=== PATIENT | female | born 1930 | race Asian ===

== ENCOUNTER 2017-03-22 21:05 | Emergency (ER) | payer OTHER ==
[~2017-03-22 21:05] MED LIST: ALBUTEROL0.63 MG/3 NEB; CLINDAMYCIN HC300 MG PO; LAC PO; LEVOFLOXACIN500 M1 PO; MEDDP PO; METOPROLOL TART25 M1 PO; PROVENTIL0.09 MG/A1 INH
[2017-03-22 22:13] LABS: BASOPHIL % 0.1 % (0-2); PLATELET COUNT 134 x10^3mcL (130-400); RED CELL DISTRIBUTION WIDTH 13.4 % (11.5-14.5)
[2017-03-22 22:22] LABS: CALCIUM 8.4 mg/dL (8.5-10.1); CARBON DIOXIDE 26.1 mmol/L (21-32); CHLORIDE SERUM 103 mmol/L (98-107); CREATININE SERUM 0.7 mg/dL (0.6-1.0); GLUCOSE SERUM 130 mg/dL (74-106); POTASSIUM SERUM 3.5 mmol/L (3.5-5.1); SODIUM SERUM 139 mmol/L (136-145)
[2017-03-22 22:28] LABS: ALBUMIN 3.6 g/dL (3.4-5.0); ALKALINE PHOSPHATASE 72 U/L (46-116); ALT/SGPT 18 U/L (14-59); AST/SGOT 22 U/L (15-37); BILIRUBIN TOTAL 1.11 mg/dL (0.20-1.00); TOTAL PROTEIN, SERUM 6.9 g/dL (6.4-8.2)
[2017-03-23 01:29] VITALS: BP 156/65
== END 2017-03-23 01:29 | disposition home or self-care (01) ==
LOC: ED 21:05
PROVIDERS: Emergency Medicine
DX: R06.02 Shortness of breath (principal); R06.82 Tachypnea, not elsewhere classified; I10 Essential (primary) hypertension; Z79.899 Other long term (current) drug therapy
CPT/HCPCS: 83880; J7512; J7613; J7644

== ENCOUNTER 2017-03-23 22:50 | Inpatient (IN) | payer OTHER ==
[~2017-03-23] VITALS: Ht 157.5 cm; Wt 54.4 kg
[2017-03-24] VITALS (9 sets, daily range): BP systolic 152–196; BP diastolic 56–74
[2017-03-24 00:08] LABS: BASOPHIL % 0.1 % (0-2); PLATELET COUNT 134 x10^3mcL (130-400); RED CELL DISTRIBUTION WIDTH 13.4 % (11.5-14.5)
[2017-03-24 00:18] LABS: CALCIUM 8.5 mg/dL (8.5-10.1); CARBON DIOXIDE 29.1 mmol/L (21-32); CHLORIDE SERUM 106 mmol/L (98-107); CREATININE SERUM 1.1 mg/dL (0.6-1.0); GLUCOSE SERUM 147 mg/dL (74-106); POTASSIUM SERUM 3.2 mmol/L (3.5-5.1); SODIUM SERUM 142 mmol/L (136-145)
[2017-03-24 00:23] LABS: ALBUMIN 3.4 g/dL (3.4-5.0); ALKALINE PHOSPHATASE 70 U/L (46-116); ALT/SGPT 20 U/L (14-59); AST/SGOT 22 U/L (15-37); BILIRUBIN TOTAL 0.6 mg/dL (0.20-1.00); TOTAL PROTEIN, SERUM 6.8 g/dL (6.4-8.2)
[2017-03-24 04:11] LABS: CHOLESTEROL/HDL RATIO 2.1; T3 TOTAL 0.79 ng/mL
[2017-03-24 04:17] LABS: FREE T4 1.18 ng/dL (0.76-1.46); FREE THYROXINE INDEX 2.6 ug/dL (1.4-4.5); T4(THYROXINE) 7.4 ug/dL (4.7-13.3)
[2017-03-25] VITALS: Ht 157.5 cm; Wt 54.4 kg
[2017-03-25 06:18] VITALS: BP 129/56
[2017-03-25 07:45] LABS: BASOPHIL % 0.1 % (0-2); PLATELET COUNT 132 x10^3mcL (130-400); RED CELL DISTRIBUTION WIDTH 13.9 % (11.5-14.5)
[2017-03-25 08:16] LABS: CALCIUM 8.8 mg/dL (8.5-10.1); CARBON DIOXIDE 22.1 mmol/L (21-32); CHLORIDE SERUM 105 mmol/L (98-107); CREATININE SERUM 0.9 mg/dL (0.6-1.0); GLUCOSE SERUM 153 mg/dL (74-106); MAGNESIUM 2.1 mg/dL (1.8-2.4); POTASSIUM SERUM 4.4 mmol/L (3.5-5.1); SODIUM SERUM 140 mmol/L (136-145)
[2017-03-25 10:36] VITALS: BP 104/82
[2017-03-25 13:15] VITALS: BP 156/68
[2017-03-25 17:22] VITALS: BP 162/79
[2017-03-25 18:15] VITALS: BP 142/54
[2017-03-25 21:40] VITALS: BP 140/49
[2017-03-26 05:06] VITALS: BP 146/60
[2017-03-26 06:36] LABS: CALCIUM 8.4 mg/dL (8.5-10.1); CARBON DIOXIDE 27.9 mmol/L (21-32); CHLORIDE SERUM 104 mmol/L (98-107); GLUCOSE SERUM 93 mg/dL (74-106); PHOSPHOROUS 4.8 mg/dL (2.5-4.9); POTASSIUM SERUM 3.7 mmol/L (3.5-5.1); SODIUM SERUM 140 mmol/L (136-145)
[2017-03-26 08:51] LABS: BASOPHIL % 0.1 % (0-2); PLATELET COUNT 134 x10^3mcL (130-400); RED CELL DISTRIBUTION WIDTH 13.7 % (11.5-14.5)
[2017-03-26 10:15] VITALS: BP 184/64
[2017-03-26 13:50] VITALS: BP 188/76
[2017-03-26 17:00] VITALS: BP 136/62
[2017-03-26 21:45] VITALS: BP 152/62
[2017-03-26 22:11] VITALS: BP 161/66
[2017-03-27 02:17] VITALS: BP 145/63
[2017-03-27 06:09] VITALS: BP 109/61
[2017-03-27 06:28] LABS: BASOPHIL % 0.7 % (0-2); PLATELET COUNT 142 x10^3mcL (130-400); RED CELL DISTRIBUTION WIDTH 13.5 % (11.5-14.5)
[2017-03-27 06:51] LABS: CALCIUM 8.2 mg/dL (8.5-10.1); CARBON DIOXIDE 28.5 mmol/L (21-32); CHLORIDE SERUM 104 mmol/L (98-107); CREATININE SERUM 0.9 mg/dL (0.6-1.0); GLUCOSE SERUM 97 mg/dL (74-106); MAGNESIUM 2.1 mg/dL (1.8-2.4); POTASSIUM SERUM 3.7 mmol/L (3.5-5.1); SODIUM SERUM 141 mmol/L (136-145)
[2017-03-27 10:21] VITALS: BP 140/57
[2017-03-27] MEDS ORDERED: LEVOFLOXACIN500 M1 PO (12:51)
[2017-03-27] MEDS ORDERED: CLEOCIN HCL300 MG PO (12:52)
[2017-03-27] MEDS ORDERED: LAC PO (12:53)
[2017-03-27] MEDS ORDERED: MEDDP PO (12:53)
[2017-03-27] MEDS ORDERED: ZESTRIL5 MG PO (12:54)
[2017-03-27] MEDS ORDERED: ASPIR 8181 MG PO (12:54)
[2017-03-27 14:00] VITALS: BP 152/44
[2017-03-27 14:17] VITALS: BP 140/57
== END 2017-03-27 18:26 | disposition home or self-care (01) | DRG 137 ==
LOC: ED 22:50 → DU 03-24 00:49
PROVIDERS: Emergency Medicine; Family Medicine; ADMIT Family Medicine
DX: J69.0 Pneumonitis due to inhalation of food and vomit (principal); J96.01 Acute respiratory failure with hypoxia; N17.0 Acute kidney failure with tubular necrosis; J44.1 Chronic obstructive pulmonary disease with (acute) exacerbation; I42.9 Cardiomyopathy, unspecified; E86.0 Dehydration; J44.0 Chronic obstructive pulmonary disease with (acute) lower respiratory infection; I11.0 Hypertensive heart disease with heart failure; I50.30 Unspecified diastolic (congestive) heart failure; Z82.49 Family history of ischemic heart disease and other diseases of the circulatory system; Z79.899 Other long term (current) drug therapy
CPT/HCPCS: 83880; 84439; 97110-GP; 97116-GP; 97530-GP; J0360; J2543; J2930; J3480; J3490; J7030; J7512; J7613; J7620; J7626; J7644; Q0092; Q0177

== ENCOUNTER 2017-12-30 10:08 | Emergency (ER) | payer OTHER ==
[~2017-12-30] VITALS: Ht 152.4 cm; Wt 50.3 kg
[~2017-12-30 10:08] MED LIST changes: +ASPIR 8181 MG PO; +CLEOCIN HCL300 MG PO; +ZESTRIL5 MG PO
[2017-12-30 10:15] VITALS: Ht 152.4 cm; Wt 50.3 kg
[2017-12-30 14:03] VITALS: BP 173/76
== END 2017-12-30 14:03 | disposition short-term general hospital (02) ==
LOC: ED 10:08
DX: S61.411A Laceration without foreign body of right hand, initial encounter (principal); I10 Essential (primary) hypertension; W54.0XXA Bitten by dog, initial encounter; Y93.89 Activity, other specified; Y99.8 Other external cause status; Y92.89 Other specified places as the place of occurrence of the external cause
CPT/HCPCS: 90715; J0295; J0690; J2270; J3490; Q0092

== ENCOUNTER 2019-08-18 05:01 | Inpatient (IN) | payer OTHER ==
[~2019-08-18] VITALS: Ht 154.9 cm; Wt 51.9 kg
[2019-08-18 05:08] VITALS: Ht 154.9 cm; Wt 51.9 kg
--- NOTE | 2019-08-18 05:16 | NUR ---
PT CAME TO ED CO SOB SINCE 5AM. PER SON PT EXPERIENCES SOB WHEN THE WEATHER GETS COLDER. WHEEZE IN BILATERAL LUNGS. PT USING ABD MUSCLE FOR BREATHING. NO S/S OF DISTRESS. RESP E/U. SON AT BEDSIDE. DR. PATEL PREFORMED MEASURES. PT A/O X4. LAB AND RESP AT BEDSIDE. WILL CONTINUE TO MONITOR.
[2019-08-18 05:29] LABS: BASOPHIL % 0.3 % (0-2); PLATELET COUNT 156 x10^3mcL (130-400); RED CELL DISTRIBUTION WIDTH 14.1 % (11.5-14.5)
--- NOTE | 2019-08-18 05:38 | NUR ---
PT MEDICATED PER ORDER. PT VERBALIZED UNDERSTANDING OF MEDICATION TEACHING. SEE EMAR FOR DETAILS.
[2019-08-18 05:42] LABS: CALCIUM 8.1 mg/dL (8.5-10.1); CHLORIDE SERUM 107 mmol/L (98-107); GLUCOSE SERUM 124 mg/dL (74-106); POTASSIUM SERUM 3.2 mmol/L (3.5-5.1); SODIUM SERUM 144 mmol/L (136-145)
[2019-08-18 05:54] LABS: ALBUMIN 3.4 g/dL (3.4-5.0); ALKALINE PHOSPHATASE 56 U/L (46-116); ALT/SGPT 32 U/L (14-59); AST/SGOT 24 U/L (15-37); BILIRUBIN TOTAL 1.3 mg/dL (0.20-1.00); C REACTIVE PROTEIN 1.4 mg/dL (<=0.9); TOTAL PROTEIN, SERUM 7.1 g/dL (6.4-8.2)
[2019-08-18 05:57] LABS: FREE T4 1.55 ng/dL (0.76-1.46); FREE THYROXINE INDEX 3.6 ug/dL (1.4-4.5); T3 TOTAL 0.88 ng/mL; T4(THYROXINE) 9.5 ug/dL (4.7-13.3)
[2019-08-18 06:15] LABS: ERYTHROCYTE SED RATE 54 mm/hr (0-30)
--- NOTE | 2019-08-18 06:22 | NUR ---
PT LAYING ON GURNEY IN POSITION OF COMFORT, SLEEPING. EASILY ARROUSEABLE. NO S/S OF DISTRESS. RESP E/U. COMFORT MEASURES IMPLEMENTED. WILL CONTINUE TO MONITOR.
[2019-08-18] MEDS ORDERED: METOPROLOL SUCC50 M2 PO (06:33)
[2019-08-18] MEDS ORDERED: ALBUTEROL0.63 MG/3 (06:33)
--- NOTE | 2019-08-18 07:17 | NUR ---
REPORT GIVEN TO LEODAN BREWER TO ASSUME CARE OF PT.
--- NOTE | 2019-08-18 07:59 | NUR ---
RECEIVED PT FROM ER, ASSISTED BY 2 NURSES, NEPHEW AT BEDSIDE, PT IN NO ACUTE DISTRES, AXOX4, TAGALOG, [place] (R) EAR, WEARING [place], VERBAL, ABLE TO MAKE NEEDS KNOWN, CALM AND COPPERATIVE W/ CARE, PERRLA, NO REDNESS/DRAINAGE, NO FACIAL DROOP/SLURRED SPEECH, RESP EVEN, WHEEZING, DIM BLL, CHEST RISE SYMMETRICALLY, TELE #18, NSR, HR-102, DENIED CP/PRESSURE/PALPITATION, DENIED N/V/D, ABD FLAT AND NON-TENDER TO TOUCH, BS ACTIVE X 4, PALP PULSES, CAP REFILL < 3S, EQUAL HAND NEW CAR GET READY MECHANIC, AMBULATORY W/ ASSIST, USED CANE AT HOME, INCONTINENT WHEN COUGH, IV PATENT AND INFUSING WELL, DRESSING CDI, SEE SKIN ASSESSMENT, SKIN C/D/W, ALL NEEDS ADDRESSED AT THIS TIME, SAFETY PROTOCOL FOLLOWED, CONTINUE TO MONITOR
[2019-08-18 08:00] LABS: CK-MB 2.4 ng/mL (0-3.6)
--- NOTE | 2019-08-18 08:16 | NUR ---
SEEN BY DR DONNELLY AND DR ARELLANO, NEW ORDER OBTAINED, PT AND NEPHEW MADE AWARE
[2019-08-18 08:57] VITALS: BP 163/58
[2019-08-18 09:11] VITALS: BP 163/58
--- NOTE | 2019-08-18 09:54 | NUR ---
AM MEDS GIVEN PER MD ORDER VIA EMAR, TOLERATED WELL, EDUCTED R/T MED, CONDITION AND ASE GIVEN TO PT AND NEPHEW, VERBALLY UNDERTSANDING, CONTINUE TO MONITOR
--- NOTE | 2019-08-18 09:59 | NUR ---
DR DONNELLY MADE AWARE OF K-3.[address] ARELLANO ORDER LASIX 20MEQ IVP THIS AM, NEW ORDER OBTAINED, PT AND NEPHEW MADE AWARE
--- NOTE | 2019-08-18 11:08 | NUR ---
PT HAD ECHO DONE AT BEDSIDE, TOLERATED WELL, NEPHEW AT BEDSIDE, DR DONNELLY MADE AWARE OF PT TEETH CONDITION AND CHEWING ABILITY, NEW ORDER OBTAINED R/T DIET, PT AND NEPHEW MADE AWARE, CONTINUE TO MONITOR
[2019-08-18 11:37] LABS: AMPHETAMINE QUAL UR NONE DETECTED (See below)
--- NOTE | 2019-08-18 14:24 | NUR ---
VOID X 1, ASSISTED BACK TO BED, IN NO ACUTE DISTRESS, IV INFUSING WELL, CONTINUE TO MONITOR
[2019-08-18 16:47] VITALS: BP 134/56
--- NOTE | 2019-08-18 17:09 | NUR ---
PT IN BED, IN NO ACUTE DISTRESS, RESP EVEN, NO SOB/COUGH, TELE #18, DENIED CP/PRESSURE/PALPITATION, DENIED N/V/D, ASSISTED TO BSC, VOID X 1, BACK TO BED, FALLRISK, IV INFUSIGN WELL, DRESSING CDI, SKIN C/D/W, ALL NEEDS ADDRESSED AT THIS TIME, SAFETY PROTOCOL FOLLOWED, WILL ENDORSE TO ONCOMING RN
--- NOTE | 2019-08-18 19:30 | NUR ---
PT IS A/O x4. TELE #18, NSR. DENIES ANY CHEST PAIN OR PRESSURE. PULSES ARE PRESENT. NO EDEMA NOTED. LUNGS CLEAR IN ALL FEILDS. ON RA, DENIES ANY SOB. EQUAL CHEST RISE AND FALL. NO SIGN OF RESP DISTRESS. PT GETS SOB WITH MINIMAL ACTIVITY. BOWEL SOUNDS PRESENT x4. DENIES ANY ABD PAIN OR DISTRESS. STRESS INCONTINENT AT TIMES. GENERAL WEAKNESS. SKIN INTACT. DENIES ANY PAIN AT THIS TIME. IV ON LFA INTACT AND PATENT. NO SIGN OF INFILTRATION OR IRRITATION NOTED. BED IS AT LOWEST SETTING. CALL LIGHT WITHIN REACH. WILL CONTINUE TO MONITOR.
[2019-08-18 19:42] LABS: microscopic required? YES; urine erythrocyte TRACE (NEGATIVE)
[2019-08-18 20:51] VITALS: BP 158/63
--- NOTE | 2019-08-19 02:04 | NUR ---
PT IS RESTING IN BED WITH BOTH EYES CLOSED. BREATHING EVEN AND UNLABORED. NO SIGN OF DISTRESS NOTED. BED IS AT LOWEST SETTING. CALL LIGHT WITHIN REACH. WILL CONTINUE TO MONTIOR.
[2019-08-19 04:43] VITALS: BP 159/65
[2019-08-19 06:21] LABS: PLATELET COUNT 150 x10^3mcL (130-400); RED CELL DISTRIBUTION WIDTH 14.3 % (11.5-14.5)
--- NOTE | 2019-08-19 06:28 | NUR ---
PT IS RESTING IN BED. DENIES ANY DISTRESS. NO SOB NOTED. EQUAL CHEST RISE AND FALL. NO ACUTE EVENT OCCURED AT NIGHT. BED IS AT LOWEST SETTING. CALL LIGHT WITHIN REACH. BED ALARM IS ON. WILL ENDORSE TO AM NURSE.
[2019-08-19 06:45] LABS: CARBON DIOXIDE 25.3 mmol/L (21-32); CHLORIDE SERUM 109 mmol/L (98-107); CREATININE SERUM 0.9 mg/dL (0.6-1.0); GLUCOSE SERUM 154 mg/dL (74-106); MAGNESIUM 1.9 mg/dL (1.8-2.4); PHOSPHOROUS 4.1 mg/dL (2.5-4.9); SODIUM SERUM 145 mmol/L (136-145)
[2019-08-19 06:48] LABS: BASOPHIL % 0 % (0-2)
--- NOTE | 2019-08-19 07:10 | NUR ---
RECEIVED REPORT FROM NIRANJAN ALCOCER, PT IN BED IN NO ACUTE DISTRESS
--- NOTE | 2019-08-19 07:15 | NUR ---
PT IN BED, ALERT, VERBAL, ABLE TO MAKE NEEDS KNOWN, CALM AND COPPERATIVE, PERRLA, NO FACIAL DROOP/SLURRE SPEECH NOTED, DENIED PAIN.KATHLEEN.PALPITATION, DENIED N/V,N RESP EVEN, NO SOB/COUGH, DIM BLL, TELE #18, NSR, CHEST RISE SYMMETRICALLY, ABD FLAT AND NON-TENDER TO TOUCH, BS ACTIVE X 4, PALP PULSES, CAP REFILL < 3S, AMBULATORY W/ ASSIST, INCONTINENT AT TIMES, BSC, ALL NEEDS ADDRESSED AT THIS TIME, SAFETY PROTOCOL FOLLOWED, CONTINUE TO MONITOR
[2019-08-19 08:45] VITALS: BP 181/75
--- NOTE | 2019-08-19 10:48 | NUR ---
DR DONNELLY PAGED AND MADE AWARE OF PT CURENT BP AND HR CONDITION, AWAITING FOR CALLING BACK, CHARGE NURSE RADHA MADE AWARE
--- NOTE | 2019-08-19 12:48 | NUR ---
ECHO PENDING-HAVING LUNCH
[2019-08-19 12:49] VITALS: BP 152/72
--- NOTE | 2019-08-19 13:03 | NUR ---
VOID X 1, ASSISTED BACK TO BED, IN NO ACUTE DISTRESS
[2019-08-19 14:32] VITALS: BP 150/74
--- NOTE | 2019-08-19 15:23 | NUR ---
NEW ORDER FOR ECHO FROM DR ARELLANO-ECHO PENDING-TEST DONE YESTERDAY-ORDER TO BE CONFIRMED-DR ARELLANO'S OFFICED CALLED
--- NOTE | 2019-08-19 17:14 | NUR ---
PT IN BED, IN NO ACUTE DISTRESS, NO FACIAL DROOP/SLURRED SPEECH, RESP EVEN, NO SOB/COUGH, TELE #18, DENIED CP/PRESSURE/PALPITATION, DENIED N/V/D, FALLRISK, IV PATENT AND FLUSHING WELL, HEPLOCKED, DRESSING CDI, SKIN C/D/W, ALL NEEDS ADDRESSED AT THIS TIME, SAFETY PROTOCOL FOLLOWED, WILL ENDORSE TO ONCOMING RN
[2019-08-19 17:30] VITALS: BP 139/66
--- NOTE | 2019-08-19 18:28 | NUR ---
PT NOTED CONTINUOSLY COUGH WHILE HAVING DINNER, SITTING AT BEDSIDE DURING MEAL, IN NO ACUTE RESP DISTRESS, O2 SAT NOTED 89%, THEN 95% AT RA, HR-100, BP-142/76, 0/10, 97.9, 20, LUNGS CTA, DIM BLL, TRAY REMOVED, PT SIT UP IN BED, DR DONNELLY MADE AWARE, NEW ORDER OBTAIN FOR ST EVAL AND NPO UNTIL ST RESULT CONFIRM SWALLOWING ABILITY. PT MADE AWARE, CONTINUE TO MONITOR
[2019-08-19 20:37] VITALS: BP 150/64
--- NOTE | 2019-08-20 00:01 | NUR ---
RESTING IB BED WITH EYES CLOSED, NO FACIAL GRIAMCING NOTED. RESPIRATION EVEN AND UNLABORED. NO S/S OF ACUTE DISTRESS.CALL LIGHT WITHIN REACH. BED IN LOWEST POSITION FOR SAFETY.
[2019-08-20 05:06] VITALS: BP 104/54
--- NOTE | 2019-08-20 05:21 | NUR ---
AM CARE RENDERED BYU NURSE ASSIGNED. DENIES ANY PAIN/DISCOMFORT. KEPT CLEAN AND DRY/ ALL NEEDS ATTENDED.
[2019-08-20 06:48] LABS: CALCIUM 8.5 mg/dL (8.5-10.1); CHLORIDE SERUM 107 mmol/L (98-107); GLUCOSE SERUM 100 mg/dL (74-106); MAGNESIUM 1.9 mg/dL (1.8-2.4); PHOSPHOROUS 4.6 mg/dL (2.5-4.9); SODIUM SERUM 145 mmol/L (136-145)
--- NOTE | 2019-08-20 07:30 | NUR ---
RECEIVED PATIENT IN BED. ALERT [place] AND TAGALOG SPEAKING. FORGETFUL AT TIMES. PATIENT IS NPO FOR SWALLOW EVAL. DR DONNELLY AT BEDSIDE TO SEE PATIENT AND ORDERED CLEAR LIQUID DIET FOR LUNCH UNTIL SWALLOW EVAL COMPLETED. TELE 18 NSR. RESP EVEN AND UNLABORED, EXP WHEEZES NOTED. ON O2 AT 1L VIA N/C. SOB NOTED ON EXERTION. R.T. FOR HHN TX'S. ASP PRECAUTONS IN PLACE. GENERALIZED WEAKNESS NOTED. P.T. TO SEE PATIENT. NO ACUTE DISTRESS NOTED. WILL CONTINUE TO MONITOR.
[2019-08-20 08:22] LABS: PLATELET COUNT 177 x10^3mcL (130-400); RED CELL DISTRIBUTION WIDTH 14.4 % (11.5-14.5)
[2019-08-20 08:23] LABS: BASOPHIL % 0.1 % (0-2)
[2019-08-20 08:47] VITALS: BP 156/63
[2019-08-20 13:06] VITALS: BP 157/61
--- NOTE | 2019-08-20 13:11 | NUR ---
PATIENT IS SITTING UP ON THE SIDE OF THE BED EATING LUNCH TRAY. IVF INFUSING WELL. ASSISTED TO BSC PRN. NO ACUTE DISTRESS NOTED. WILL CONTINUE TO MONITOR.
--- NOTE | 2019-08-20 14:22 | NUR ---
PHYSICAL THERAPY DAILY NOTES CO-SIGN All documentation done by the Water Resources Program Director for 08/20/19 has been reviewed. I agree with the documentation. Reviewed/Co-Signed by: Yari Hart PT Documentation Done by: ERASTO ZURITA PTA
--- NOTE | 2019-08-20 14:34 | NUR ---
PATIENT IS IN BED WITH FAMILY MEMBER AT BEDSIDE. R.T. INTO GIVE PATIENT HHN TX. NO CHANGE IN PATIENT'S CONDITION NOTED.
--- NOTE | 2019-08-20 17:45 | NUR ---
PATIENT IS SITTING UP IN BED, L[place] IV INFUSING WELL AT THIS TIME. IV SITE PATENT. NO C/O PAIN OR DISCOMFORT. NO CHANGE IN CONDITIION NOTED. WILL CONTINUE TO MONITOR.
[2019-08-20 17:54] VITALS: BP 140/65
[2019-08-20 19:49] VITALS: BP 131/54
--- NOTE | 2019-08-20 20:12 | NUR ---
PATIENT RECEIVED ALERT, ORIENTED X4 RESTING IN BED. SPEAKS MOSTLY TAGALOG. HARD OF HEARING. GETS SHORTH OF BREATH EASILY DURING EXERTION, ON ROOM AIR. DENIES GI DISCOMFORT, ON CLEAR LIQUID DIET, LBM 08/19/19. VOIDING FREELY, USES BEDSIDE COMMODE, EPISODE OF INCONTINENCE AT TIMES. GENERALIZED WEAKNESS TO EXTREMITIES. SKIN DRY AND INTACT. SALINE LOCK TO LEFT FOREARM. ON TELE #18. WILL CONTINUE TO MONITOR.
[2019-08-21 05:50] VITALS: BP 147/62
--- NOTE | 2019-08-21 05:52 | NUR ---
PATIENT RESTING IN BED. RESPIRATION EVEN AND UNLABORED, ON ROOM AIR. DENIES PAIN AT THIS TIME. SALINE LOCK TO LEFT FOREARM PATENT AND INTACT. ON CLEAR LIQUID DIET. ASPIRATION PRECAUTION OBSERVED. ASSISTED WITH NEEDS. SAFETY OBSERVED. PLACED BED IN THE LOWEST POSITION. PLACED CALL LIGHT WITHIN REACH AT ALL TIMES.
--- NOTE | 2019-08-21 06:35 | NUR ---
PATIENT COMPLAINED OF RIGHT FOOT PAIN, 6/10. MEDICATED WITH TYLENOL 650 MG PO ORDERED. WILL CONTINUE TO MONITOR.
[2019-08-21 06:59] LABS: BASOPHIL % 0.3 % (0-2); PLATELET COUNT 171 x10^3mcL (130-400)
[2019-08-21 07:35] LABS: CALCIUM 8.4 mg/dL (8.5-10.1); CARBON DIOXIDE 26.6 mmol/L (21-32); CHLORIDE SERUM 103 mmol/L (98-107); CREATININE SERUM 0.9 mg/dL (0.6-1.0); GLUCOSE SERUM 90 mg/dL (74-106); MAGNESIUM 1.9 mg/dL (1.8-2.4); PHOSPHOROUS 4.1 mg/dL (2.5-4.9); POTASSIUM SERUM 3.3 mmol/L (3.5-5.1); SODIUM SERUM 140 mmol/L (136-145)
--- NOTE | 2019-08-21 07:45 | NUR ---
RECEIVED HAND OFF REPORT FROM NIGHT NURSE, PATIENT SITTING UP IN BED AT THIS TIME RECEIVING BREATHING TREATMENT, DOES NOT USE HOME 02 AND WAS ON ROOM AIR BEFORE RT STARTED BREATHING TREATMENT SATURATION 95%. PATIENT ALERT BUT SPEAKING TAGOLOG MAINLY. REPORTED HARD OF HEARING. DEMINISHED LUNG SOUNDS IN BASES HEARD NO COUGH NOTED, TELE MONITOR #18 PRESENT ON PATIENT SHOWING NSR. 20 IV TO LFA SALINE LOCKED AND FLUSHING WELL. BEDSIDE COMMODE NEXT TO PATIENT BED. NIGHT NURSE STATED PATIENT HAS GENERAL WEAKNESS BUT IS ABLE TO AMBULATE TO BEDSIDE COMMODE WITHOUT ASSISTANCE, CANE AT BEDSIDE. CECE ROUNDED ON PATIENT ASKING IF PT HAS VISITED PATIENT, THEY HAVE PREVIOUSLY. PATIENT HAD NO OTHER COMPLAINTS A THIS TIME. CALL LIGHT PLACED WITHIN REACH OF PATIENT
[2019-08-21 08:19] VITALS: BP 156/53
--- NOTE | 2019-08-21 09:17 | NUR ---
ADMINISTERED MEDICATION PER JAN. PATIENT REQUESTED TO HAVE MEDICIATION CRUSHED AND GIVEN WITH APPLE SAUCE. SWALLOWED WITHOUT ISSUE. PANCHO MAURER, WALKED PATIENT AND REPORTED THAT PATIENT GAIT SHOULD BE SUPPORTED WITH FRONT WHEELED WALKER, AGREED THAT PATIENT CANE WILL SUFFICE TO TRANSFER TO BEDSIDE COMMODE. WHILE WALKING, PATIENT HR INCREASED TO 108, BACK TO 88 WHEN RESTING. CALL LIGHT PLACED WITHIN REACH
--- NOTE | 2019-08-21 09:46 | NUR ---
SWALLOW EVALUATION DONE ON PATIENT, RECOMMENDED PUREE DIET WITH THIN LIQUIDS AND TO CRUSH MEDICATIONS AND GIVE WITH APPLESAUCE. PATIENT HAS NO TEETH AND NO DENTURES AT BEDSIDE SO WILL NOT ATTEMPTED TO PROGRESS DIET AT THIS TIME. WILL INFORM CARE TEAM.
--- NOTE | 2019-08-21 09:49 | NUR ---
PT WAS SEEN FOR DYSPHAGIA. PT WAS ABLE TO SAFELY SWALLOW PUREE DIET WITH THIN LIQUID WITHOUT S/S OF ASPIRATION. PT HAD MILD DIFFICULTY WITH MASTICATION SKILLS. RECOMMENDATION PUREE DIET WITH THIN LIQUID SMALL BITES AND SIPS ONLY CRUSHED MEDICINE IN APPLE SAUCE.
[2019-08-21 11:59] VITALS: BP 148/58
[2019-08-21 12:42] VITALS: BP 148/58
--- NOTE | 2019-08-21 12:42 | NUR ---
PATIENT FAMILY MEMEBER (NIECE) AT BEDSIDE STATING TAHT "THE DOCTOR YESTERDAY TOLD ME [THE PATIENT] WOULD BE GOING HOME TODAY." NO DISCHARGE ORDERS ARE AVAILABLE IN THE CHART OR IN PROGRESS NOTES. INFORMED PATIENT AND FAMILY OF THIS AT THAT I WAS NOT INFORMED OF ANY PENDING DISCHARGE. PATIENT EATING LUNCH TRAY OF PUREE DIET WITH THIN LIQUIDS. FAMILY SILVA STATED SHE DOES NOT HAVE DENTURES AND EATS ONLY SOFT/PUREED FOODS. FAMILY MEMBER ALSO GAVE PATIENT CRACKERS STATING THAT PATIENT HOLDS THEM IN HER MOUTH TO SOFTEN THEM BEFORE SWALLOWING
--- NOTE | 2019-08-21 15:01 | NUR ---
PHYSICAL THERAPY DAILY NOTES CO-SIGN All documentation done by the Healthcare Science Specialist for 08/21/19 has been reviewed. I agree with the documentation. Reviewed/Co-Signed by: Yari Hart PT Documentation Done by:ERASTO MAJANO PTA
[2019-08-21 16:20] VITALS: BP 119/60
--- NOTE | 2019-08-21 16:41 | NUR ---
NEPHEW/GRANDSON PRESENT AT BEDSIDE ASKING ABOUT UPDATE FOR PATIENT AND DISCHARGE. INFORMED FAMILY AND PATIENT THAT DUE TO PATIENT BEING ON OXYGEN THERAPY THIS MORNING SHE WILL NOT BE DISCHARGED UNTIL SHE HAS BEEN OFF OXYGEN. CECE ADKINS, WILL DISCHARGE PATIENT IN AM IF PATIENT CONTINUES TO SATURATE WELL ON ROOM AIR.
--- NOTE | 2019-08-21 19:15 | NUR ---
RECEIVED PT FROM PREVIOUS SHIFT NURSE. PT AOX4, IAN. ON TELE #18, SR, DENIES CP/PRESSURE. WHEEZES HEARD UPON AUSCULTATION, ON RA. DENIES SOB/DIFFICULTY BREATHING. IV TO LFA, INTACT AND PATENT. BED IN LOWEST POSITION. CALL LIGHT WITHIN REACH. WILL CONTINUE TO MONITOR.
[2019-08-21 19:50] VITALS: BP 119/52
--- NOTE | 2019-08-22 00:50 | NUR ---
PT RESTING IN BED. RR EVEN AND UNLABORED. IN NO ACUTE DISTRESS. CALL LIGHT WITHIN REACH. BED IN LOWEST POSITION. WILL CONTINUE TO MONITOR.
[2019-08-22 05:09] VITALS: BP 136/48
[2019-08-22 06:18] LABS: BASOPHIL % 0.3 % (0-2); PLATELET COUNT 157 x10^3mcL (130-400); RED CELL DISTRIBUTION WIDTH 13.9 % (11.5-14.5)
[2019-08-22 06:35] LABS: CALCIUM 8.4 mg/dL (8.5-10.1); CARBON DIOXIDE 30.1 mmol/L (21-32); CHLORIDE SERUM 105 mmol/L (98-107); CREATININE SERUM 0.9 mg/dL (0.6-1.0); GLUCOSE SERUM 91 mg/dL (74-106); POTASSIUM SERUM 4.4 mmol/L (3.5-5.1); SODIUM SERUM 142 mmol/L (136-145)
--- NOTE | 2019-08-22 07:50 | NUR ---
AT 0710 - RECEIVED PATIENT FROM NIGHT NURSE. PATIENT IN BATHROOM AT THIS TIME. AT 0730 - SITTING ON SIDE OF BED. APPEARS ORIENTED. HARD OF HEARING. RESPIRATIONS REGULAR. LUNGS SOUND CLEAR. O2 SAT 97% ON ROOM AIR. AT 0750 - SITTING UP IN BED, EATING BREAKFAST.
[2019-08-22 08:12] VITALS: BP 153/60
--- NOTE | 2019-08-22 12:02 | NUR ---
SEEN BY PHYSICAL THERAPY. PATIENT AND FAMILY WAITING FOR COMPLETION OF DISCHARGE ORDERS.
[2019-08-22] MEDS ORDERED: LEVAQUIN750 MG PO (12:34)
[2019-08-22] MEDS ORDERED: ZESTRIL5 MG PO (12:34)
[2019-08-22 12:38] VITALS: BP 150/62
--- NOTE | 2019-08-22 14:08 | NUR ---
AT 1330 - TAKEN OFF CARDIAC MONITORING. IV CATHETER REMOVED INTACT. PREPARED FOR DISCHARGE. AT 1400 - PRINTED DISCHARGE INSTRUCTIONS GIVEN AND EXPLAINED TO PATIENT AND FAMILY. PRESCRIPTION PROVIDED. AT 1408 - DISCHARGED HOME WITH FAMILY. TAKEN TO DISCHARGE OFFICE IN WHEELCHAIR BY [place].
== END 2019-08-22 14:08 | disposition home health service (06) | DRG 194 ==
LOC: ED 05:01 → DU 06:29
PROVIDERS: General Practice; Specialist; ADMIT Internal Medicine
DX: I11.0 Hypertensive heart disease with heart failure (principal); J44.1 Chronic obstructive pulmonary disease with (acute) exacerbation; I27.20 Pulmonary hypertension, unspecified; E83.51 Hypocalcemia; J20.9 Acute bronchitis, unspecified; I50.33 Acute on chronic diastolic (congestive) heart failure; I34.0 Nonrheumatic mitral (valve) insufficiency; D64.9 Anemia, unspecified; E87.6 Hypokalemia; Z68.20 Body mass index [BMI] 20.0-20.9, adult; Z79.899 Other long term (current) drug therapy; Z79.82 Long term (current) use of aspirin; Z82.49 Family history of ischemic heart disease and other diseases of the circulatory system
CPT/HCPCS: 36600; 83880; 84439; 92526-GN; 92610-GN; 97116-GP; 97530-GP; G0378; J1644; J1940; J1956; J2930; J7030; J7040; J7613; J7620; J7626; J7644; Q0092

== ENCOUNTER 2020-08-17 17:24 | Emergency (ER) | payer OTHER ==
[~2020-08-17] VITALS: Ht 152.4 cm; Wt 52.2 kg
[~2020-08-17 17:24] MED LIST changes: +ALBUTEROL0.63 MG/3; +LEVAQUIN750 MG PO; +METOPROLOL SUCC50 M2 PO
[2020-08-17 17:47] VITALS: Ht 152.4 cm; Wt 52.2 kg
[2020-08-17 19:38] VITALS: BP 194/63
== END 2020-08-17 19:38 | disposition home or self-care (01) ==
LOC: ED 17:24
DX: S61.412A Laceration without foreign body of left hand, initial encounter (principal); W54.0XXA Bitten by dog, initial encounter; Y93.89 Activity, other specified; Y92.89 Other specified places as the place of occurrence of the external cause; Y99.8 Other external cause status
CPT/HCPCS: 90715; J2001; Q0092

== ENCOUNTER 2020-08-20 12:14 | Emergency (ER) | payer OTHER ==
[~2020-08-20] VITALS: Ht 165.1 cm; Wt 68.0 kg
[2020-08-20 12:33] VITALS: Ht 165.1 cm; Wt 68.0 kg
[2020-08-20 13:20] VITALS: BP 162/75
== END 2020-08-20 13:20 | disposition home or self-care (01) ==
LOC: ED 12:14
DX: S61.452D Open bite of left hand, subsequent encounter (principal); I10 Essential (primary) hypertension; W54.0XXD Bitten by dog, subsequent encounter

== ENCOUNTER 2020-08-25 15:06 | Emergency (ER) | payer OTHER ==
[~2020-08-25] VITALS: Ht 152.4 cm; Wt 45.4 kg
[2020-08-25 15:17] VITALS: Ht 152.4 cm; Wt 45.4 kg
[2020-08-25 15:58] VITALS: BP 195/73
== END 2020-08-25 15:58 | disposition home or self-care (01) ==
LOC: ED 15:06
DX: S61.412D Laceration without foreign body of left hand, subsequent encounter (principal); J44.9 Chronic obstructive pulmonary disease, unspecified; I10 Essential (primary) hypertension; W54.0XXD Bitten by dog, subsequent encounter